=== PATIENT | female | born 1990 | race Caucasian/White ===

== ENCOUNTER → 2018-09-20 | Outpatient (CLI) | payer MEDICAID, SELFPAY ==
--- NOTE | 2018-09-20 12:00 | RAD_ITS ---
STUDY: HYSTEROSALPINGOGRAM. REASON FOR EXAM: Female, 28 years old. Infertility. FLUOROSCOPY TIME (if supplied): (0:22) minutes/seconds. 3 images were obtained. TECHNIQUE: A hysterosalpingogram was performed by the mortgage originator. Imaging was obtained. COMPARISON: None. FINDINGS: The uterus is unremarkable. Both fallopian tubes are patent with bilateral spill. RAD/Salpingogram IMPRESSION: Both fallopian tubes are patent. The uterus is unremarkable. Electronically Signed: Ld Elizabeth, at 15:04 EDT , Service support ,
--- NOTE | 2018-09-20 12:45 | PCM.OPRPT ---
Report of Operation Date of Procedure: 09/20/18 Pre-Operative Diagnosis: INFERTILITY Post-Operative Diagnosis: SAME Surgery/Procedure Performed:: HYSTEROSALPINGOGRAM Description of Surgical Findings:: NORMAL CERVIX AND VAGINA Type of Anesthesia:: None Special Medications: none Specimen's removed: none Drains: none Estimated Blood Loss (mL): none Description of Procedure: Patient was taken to the radiology suite where she was placed in the dorsolithotomy position. A speculum was placed in the vagina. The cervix was cleansed with Betadine. The HSG catheter was in inserted and the balloon inflated. The radiopaque dye was injected slowly and gently. Fluoroscopy was performed by Dr. Elizabeth the radiologist. When he deemed both tubes were open, the balloon was deflated and the remainder of the cavity was filled with dye. The instruments were then removed from the vagina. The vaginal sweep was completed. Also reviewed with the patient. She was discharged in stable condition.
== END | disposition home or self-care (01) ==
LOC: RAD 11:43
PROVIDERS: Referring Provider Obstetrics & Gynecology; Visit Provider Obstetrics & Gynecology
DX: N97.2 Female infertility of uterine origin (principal); N71.9 Inflammatory disease of uterus, unspecified
CPT/HCPCS: 58340; 74740; Q9967